=== PATIENT | female | born 1970 ===

== ENCOUNTER 2018-05-29 08:12 | Day surgery (SDC) | payer OTHER ==
[2018-05-29] MEDS ORDERED: Lactated Ringer's 500 ML IV ONE (08:28)
[2018-05-29 08:42] VITALS: TEMP 96.8
[2018-05-29] MEDS ORDERED: Propofol 10 mg/ml Inj (20 ML) ONE (09:06)
[2018-05-29 10:33] VITALS: PULSE 55
[2018-05-29 10:52] VITALS: BP 126/65; RESP 13; O2SAT 100
== END 2018-05-29 10:53 | disposition home or self-care (01) ==
LOC: H.ENDO 08:12
PROVIDERS: ATTEND Internal Medicine Gastroenterology
DX: Z12.11 Encounter for screening for malignant neoplasm of colon (principal); I10 Essential (primary) hypertension; K64.8 Other hemorrhoids
CPT/HCPCS: 45378; J2001; J2704; J7120